=== PATIENT | male | born 1955 | race African-American/Black ===

== ENCOUNTER 2018-10-24 14:03 | Emergency (ER) | payer BC ==
[2018-10-24 14:11] VITALS: BP 119/59
--- NOTE | 2018-10-24 15:59 | UC ---
Throat Pain/Nasal Jaylon HPI - HPI Summary HPI Summary: 62 y/o male presents to the urgent care c/o sore throat and nasal congestion w/ clear nasal discharge and clear PND for the past 4 days. Pain w/ swallowing is 4 /10. 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 Pt has been taking OTC medication to alleviate symptoms. Pt denies fever, cough, HERNANDEZ, dizziness, Sob, chest pain,abdominal pain, N/V/d. - History of Current Complaint Chief Complaint: UCRespiratory Stated Complaint: SORE THROAT, AND COUGH Time Seen by Provider: 10/24/18 15:56 Hx Obtained From: Patient Onset/Duration: Gradual Onset, Lasting Days - 5 days, Still Present, Worse Since - yesterday Severity: Mild Pain Intensity: 4 Pain Scale Used: 0-10 Numeric Cough: Nonproductive Associated Signs & Symptoms: Positive: Nasal Discharge - clear. Negative: Dysphagia, Wheezing, Fever, Rash - Epiglottits Risk Factors Epiglottis Risk Factors: Negative - Allergies/Home Medications Allergies/Adverse Reactions: Allergies Allergy/AdvReac Type Severity Reaction Status Date / Time No Known Allergies Allergy Verified 10/24/18 14:11 Home Medications: Home Medications Atorvastatin* [Lipitor 20 MG*] 20 mg PO DAILY 10/24/18 [History Confirmed ] Canagliflozin (NF) [Invokana (NF)] 1 tab PO DAILY 10/24/18 [History Confirmed ] Lisinopril 10 mg PO DAILY 10/24/18 [History Confirmed 10/24/18] Metformin HCl 1,000 mg PO DAILY 10/24/18 [History Confirmed 10/24/18] PMH/Surg Hx/FS Hx/Imm Hx Previously Healthy: Yes Endocrine History: Diabetes, Dyslipidemia Cardiovascular History: Hypertension - Surgical History Surgical History: Yes Surgery Procedure, Year, and Place: December 2010Left hip surgery 2 years ago; resurfaced right knee - Family History Known Family History: Positive: Hypertension, Diabetes Family History: prostate cancer, breast cancer - Social History Occupation: Employed Full-time Lives: With Family Alcohol Use: Occasionally Substance Use Type: None Smoking Status (MU): Never Smoked Tobacco Review of Systems All Other Systems Reviewed And Are Negative: Yes Constitutional: Positive: Negative Skin: Positive: Negative Eyes: Positive: Negative ENT: Positive: Sore Throat, Nasal Discharge - clear, Other - clear PND Respiratory: Positive: Cough - dry Cardiovascular: Positive: Negative Gastrointestinal: Positive: Negative Genitourinary: Positive: Negative Motor: Positive: Negative Neurovascular: Positive: Negative Musculoskeletal: Positive: Negative Neurological: Positive: Negative Psychological: Positive: Negative Is Patient Immunocompromised?: No Physical Exam - Summary Physical Exam Summary: VITAL SIGNS: Reviewed. GENERAL: Patient is a well developed and nourished obese male child who is sitting comfortable in the examining table. Patient is not in any acute respiratory distress. HEAD AND FACE: No signs of trauma. No ecchymosis, hematomas or skull depressions. No sinus tenderness. EYES: PERRLA, EOMI x 2, No injected conjunctiva, no nystagmus. No photophobia. EARS: Hearing grossly intact. Ear canals and tympanic membranes are within normal limits. MOUTH: Positive pharynx with mild erythema, no exudates, No B/L tonsillar enlargement , no exudate. Uvula in midline. edematous nasal mucosa w/ clear nasal discharge, clear PND NECK: Supple, trachea is midline, Positive anterior cervical lymphadenopathy, no JVD, no carotid bruit, no c-spine tenderness, neck with full ROM. No meningeal signs, no Kernig's or brudzinskis signs. CHEST: Symmetric, no tenderness at palpation LUNGS: Clear to auscultation bilaterally. No wheezing or crackles. CVS: Regular rate and rhythm, S1 and S2 present, no murmurs or gallops appreciated. ABDOMEN: Soft, non-tender. No signs of distention. No rebound no guarding, and no masses palpated. Bowel sounds are normal. EXTREMITIES: FROM in all major joints, no edema, no cyanosis or clubbing. NEURO: Alert and oriented x 3. No acute neurological deficits. Pt follows commands. SKIN: Dry and warm Triage Information Reviewed: Yes Vital Signs: Initial Vital Signs Temp 97.8 F 10/24/18 14:04 Pulse 64 10/24/18 14:04 Resp 18 10/24/18 14:04 BP 119/59 10/24/18 14:04 Pulse Ox 99 10/24/18 14:04 Throat Pain/Nasal Course/Dx - Course Course Of Treatment: 62 y/o male presents to the urgent care c/o sore throat and nasal congestion w/ clear nasal discharge and clear PND for the past 4 days. Pain w/ swallowing is 4 /10. 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 Pt has been taking OTC medication to alleviate symptoms. Pt denies fever, cough, HERNANDEZ, dizziness, Sob, chest pain,abdominal pain, N/V/d. Hx obtained. Pt with an upper respiratory infection of examination.Pt advised to increase fluid intake, rest and eat well, Rx Ibuprofen,to alleviate symptoms. If symptoms do not improve or worsen advised to return to the urgent care or f/ u with her PCP for further evaluation and treatment. Pt understood and agreed with plan of care - Differential Dx/Diagnosis Differential Diagnosis/HQI/PQRI: Influenza, Laryngitis, Pharyngitis, Sinusitis, Tonsillitis, URI Provider Diagnosis: Upper respiratory infection Discharge - Sign-Out/Discharge Documenting (check all that apply): Patient Departure - d/c home All imaging exams completed and their final reports reviewed: No Studies - Discharge Plan Condition: Stable Disposition: HOME Patient Education Materials: Upper Respiratory Infection (ED) Referrals: Godfrey Jeffrey MD [Primary Care Provider] - 3 Days Additional Instructions: 1-Please take ibuprofen PO q6-8hrs prn as instructed after meals to alleviate pain and swelling. Increase fluid intake, eat well, rest and avoid strenuous exercise 2-If symptoms do not improve or worsen please return to the urgent care or f/u with your PCP for further evaluation and treatment. - Billing Disposition and Condition Condition: STABLE Disposition: Home - Attestation Statements Provider Attestation: I was available for consult. This patient was seen by the RYAN. The patient was not presented to, seen by, or examined by me. -Tai
== END 2018-10-24 16:50 | disposition home or self-care (01) ==
LOC: UCEAST 14:03
DX: J06.9 Acute upper respiratory infection, unspecified (principal); E11.9 Type 2 diabetes mellitus without complications; Z79.4 Long term (current) use of insulin; I10 Essential (primary) hypertension; E78.5 Hyperlipidemia, unspecified
CPT/HCPCS: 87651; 99211; G0463